=== PATIENT | female | born 1985 | race Caucasian/White ===

== ENCOUNTER 2024-07-08 12:49 | Day surgery (SDC) | payer SELFPAY ==
[2024-06-30 14:22] VITALS: BMI 26.2
[~2024-07-08 12:49] MED LIST: LACTATED RINGERS SOLUTION 1,000 ML IV SCH; ONDANSETRON 4 MG/2 ML VIAL IVPUSH PRN; PROMETHAZINE HCL 25 MG/1 ML VIAL IVPB PRN; oxyCODONE HCL 5 MG TABLET PO PRN
[2024-07-08] MEDS ORDERED: SUCCINYLCHOLINE CHLORIDE 200 MG/10 ML SYRINGE ONE (13:32)
[2024-07-08] MEDS ORDERED: BUPIVACAINE HCL/PF 0.25% (2.5MG/ML) 10 ML VIAL ONE (13:48)
[2024-07-08] MEDS ORDERED: BUPIVACAINE HCL/PF 2.5 MG/ML - 30 ML VIAL IJ ONE (13:49)
[2024-07-08] MEDS ORDERED: LIDOCAINE 1%/EPI 1:100000 (20 ML MULTI DOSE VIAL) ONE (13:49)
[2024-07-08] MEDS ORDERED: BACITRACIN ZINC 15 GM TUBE TOPICAL OINTMENT ONE (13:50)
[2024-07-08] MEDS ORDERED: LIDOCAINE HCL/PF 2% SDV 5ML VIAL ONE (16:57)
[2024-07-08] MEDS ORDERED: KETOROLAC TROMETHAMINE 30 MG/1 ML VIAL ONE (16:57)
[2024-07-08] MEDS ORDERED: MIDAZOLAM HCL 2 MG/2 ML SINGLE DOSE VIAL ONE (16:59)
[2024-07-08] MEDS ORDERED: ACETAMINOPHEN INJECTION 100 ML ONE (17:02)
[2024-07-08 19:51] VITALS: RESP 20; TEMP 97
[2024-07-08 20:08] VITALS: BP 120/68; PULSE 68
== END 2024-07-08 20:10 | disposition home or self-care (01) ==
LOC: FASU 12:49
PROVIDERS: ATTEND Surgery
CPT/HCPCS: 81025; 94760; J0131